=== PATIENT | male | born 2000 | race Hispanic/Latino ===

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

== ENCOUNTER 2022-01-10 19:31 | Emergency (ER) | payer SELFPAY ==
[~2022-01-10] VITALS: Ht 177.8 cm; Wt 86.2 kg
[2022-01-10] MEDS ORDERED: IBUPROFEN 600 MG TAB PO STA (21:00)
[2022-01-10] MEDS ORDERED: IBUPROFEN 600 MG TAB ONE (21:11)
[2022-01-10] MEDS ORDERED: ONDANSETRON ODT4 MG PO ×2 (23:24→23:34)
[2022-01-10] MEDS ORDERED: AZITHROMYCIN250 MG PO (23:35)
[2022-01-10] MEDS ORDERED: VENTOLIN HFA18 GM INH (23:35)
== END 2022-01-10 23:49 | disposition home or self-care (01) ==
LOC: FSED 20:20
DX: J09.X2 Influenza due to identified novel influenza A virus with other respiratory manifestations (principal); J98.01 Acute bronchospasm; B34.9 Viral infection, unspecified; R50.9 Fever, unspecified; R05.9 Cough, unspecified
CPT/HCPCS: 83518; 87400; 99283

== ENCOUNTER 2022-05-28 03:14 | Emergency (ER) | payer OTHER ==
[~2022-05-28] VITALS: Ht 180.3 cm; Wt 80.3 kg
[~2022-05-28 03:14] MED LIST: AZITHROMYCIN250 MG PO; ONDANSETRON ODT4 MG PO; VENTOLIN HFA18 GM INH
[2022-05-28] MEDS ORDERED: FAMOTIDINE 20 MG/2 ML VIAL IV STA (03:43)
[2022-05-28] MEDS ORDERED: DIPHENHYDRAMINE HCL INJ 50 MG/ML VIAL IV ONE (03:45)
[2022-05-28] MEDS ORDERED: METHYLPREDNISOLONE SOD SUCC 125 MG/2ML VIAL IV ONE (03:45)
[2022-05-28] MEDS ORDERED: SODIUM CHLORIDE 0.9% 1000ML 1,000 ML IV SCH (04:00)
[2022-05-28] MEDS ORDERED: DIPHENHYDRAMINE HCL INJ 50 MG/ML VIAL ONE (04:01)
[2022-05-28] MEDS ORDERED: SODIUM CHLORIDE 0.9% 1000ML 1,000 ML ONE (04:02)
[2022-05-28] MEDS ORDERED: METHYLPREDNISOLONE SOD SUCC 125 MG/2ML VIAL ONE (04:02)
[2022-05-28] MEDS ORDERED: FAMOTIDINE 20 MG/2 ML VIAL IV ONE (04:02)
[2022-05-28] MEDS ORDERED: PREDNISONE20 MG PO (04:32)
[2022-05-28] MEDS ORDERED: PROVENTIL HFA6.7 GM INH (04:34)
[2022-05-28] MEDS ORDERED: EPINEPHRIN0.3 MG/0.3 IM (04:36)
[2022-05-28] MEDS ORDERED: FAMOTIDINE40 MG PO (04:37)
[2022-05-28 04:45] VITALS: BP 138/75
== END 2022-05-28 04:45 | disposition home or self-care (01) ==
LOC: FSED 03:30
DX: L50.9 Urticaria, unspecified (principal); T78.40XA Allergy, unspecified, initial encounter; L29.9 Pruritus, unspecified; J45.909 Unspecified asthma, uncomplicated; F17.210 Nicotine dependence, cigarettes, uncomplicated
CPT/HCPCS: 96374; 96375; 96376; 99283; J1200; J2930; J7030

== ENCOUNTER 2022-06-23 00:25 | Emergency (ER) | payer OTHER ==
[~2022-06-23] VITALS: Ht 180.3 cm; Wt 81.2 kg
[~2022-06-23 00:25] MED LIST changes: +EPINEPHRIN0.3 MG/0.3 IM; +FAMOTIDINE40 MG PO; +PREDNISONE20 MG PO; +PROVENTIL HFA6.7 GM INH
[2022-06-23] MEDS ORDERED: DEXAMETHASONE SOD PHOS 10 MG/1 ML VIAL IM ONE (00:45)
[2022-06-23] MEDS ORDERED: DIPHENHYDRAMINE HCL 25 MG CAP PO ONE (00:45)
[2022-06-23] MEDS ORDERED: PREDNISONE50 MG PO (00:46)
[2022-06-23] MEDS ORDERED: PROVENTIL HFA6.7 GM INH (00:46)
[2022-06-23] MEDS ORDERED: DIPHENHYDRAMINE50 M1 PO (00:46)
[2022-06-23] MEDS ORDERED: DEXAMETHASONE SOD PHOS INJ 4 MG/ML SDV ONE (00:52)
[2022-06-23 01:10] VITALS: BP 136/74
== END 2022-06-23 01:10 | disposition home or self-care (01) ==
LOC: FSED 00:29
DX: L50.9 Urticaria, unspecified (principal); T78.40XA Allergy, unspecified, initial encounter; J45.909 Unspecified asthma, uncomplicated
CPT/HCPCS: 96372; 99282; J1100 ×2

== ENCOUNTER 2023-01-04 22:05 | Emergency (ER) | payer OTHER ==
[~2023-01-04] VITALS: Ht 180.3 cm; Wt 75.7 kg
[~2023-01-04 22:05] MED LIST changes: +DIPHENHYDRAMINE50 M1 PO; +PREDNISONE50 MG PO
[2023-01-04] MEDS ORDERED: ACETAMINOPHEN 325 MG TAB PO ONE (22:30)
[2023-01-04] MEDS ORDERED: AMOXICILLIN 250 MG CAP PO SCH (22:45)
[2023-01-04] MEDS ORDERED: AMOXICILLIN500 MG PO (22:49)
[2023-01-04] MEDS ORDERED: AMOXICILLIN/CLAVULANATE K 875 MG TAB ONE (23:08)
[2023-01-04] MEDS ORDERED: ACETAMINOPHEN 325 MG TAB ONE (23:11)
[2023-01-04 23:20] VITALS: BP 136/79
[2023-01-04] MEDS ORDERED: AMOXICILLIN/CLAVULANATE K 875 MG TAB PO STA (23:22)
== END 2023-01-04 23:20 | disposition home or self-care (01) ==
LOC: FSED 22:20
DX: R05.9 Cough, unspecified (principal); J02.0 Streptococcal pharyngitis; J45.909 Unspecified asthma, uncomplicated
CPT/HCPCS: 83518; 87400; 99283

== ENCOUNTER 2023-01-27 20:51 | Emergency (ER) | payer OTHER ==
[~2023-01-27] VITALS: Ht 180.3 cm; Wt 80.3 kg
[~2023-01-27 20:51] MED LIST changes: +AMOXICILLIN500 MG PO
[2023-01-27] MEDS ORDERED: MUPIROCIN 2% OINT 22 GM TUBE TOP ONE (21:15)
[2023-01-27] MEDS ORDERED: TETANUS/DIPHTHERIA TOX ADULT 0.5 ML SYR IM STA (21:18)
[2023-01-27] MEDS ORDERED: IBUPROFEN200 MG PO (21:23)
[2023-01-27] MEDS ORDERED: AUGMENTIN 500-1 EACH PO (21:23)
[2023-01-27] MEDS ORDERED: BACITRACIN ZINC 0.9GM TP ONE (21:24)
[2023-01-27] MEDS ORDERED: CEPHALEXIN MONOHYDRATE 250 MG CAP PO ONE (21:30)
[2023-01-27] MEDS ORDERED: CEPHALEXIN MONOHYDRATE 250 MG CAP ONE (21:40)
[2023-01-27] MEDS ORDERED: TETANUS/DIPHTHERIA TOX ADULT 0.5 ML SYR ONE (21:44)
[2023-01-27 22:34] VITALS: BP 118/62
== END 2023-01-27 21:41 | disposition home or self-care (01) ==
LOC: FSED 20:56
DX: S31.23XA Puncture wound without foreign body of penis, initial encounter (principal); W54.0XXA Bitten by dog, initial encounter; Y92.89 Other specified places as the place of occurrence of the external cause; J45.909 Unspecified asthma, uncomplicated
CPT/HCPCS: 90714; 99284

== ENCOUNTER 2023-04-27 14:01 | Emergency (ER) | payer OTHER ==
[~2023-04-27] VITALS: Ht 177.8 cm; Wt 84.6 kg
[~2023-04-27 14:01] MED LIST changes: +AUGMENTIN 500-1 EACH PO; +IBUPROFEN200 MG PO
[2023-04-27] MEDS ORDERED: ONDANSETRON HCL 4 MG ORAL DISINTEGRATING TAB ONE (14:28)
[2023-04-27] MEDS ORDERED: ONDANSETRON HCL INJ 2MG/ML 2ML 2 MG/ML VIAL IV STA (14:57)
[2023-04-27] MEDS ORDERED: ONDANSETRON HCL 4 MG ORAL DISINTEGRATING TAB PO ONE (15:00)
[2023-04-27] MEDS ORDERED: FAMOTIDINE 20 MG TAB ONE (15:01)
[2023-04-27] MEDS ORDERED: ONDANSETRON ODT4 MG PO (15:05)
[2023-04-27] MEDS ORDERED: FAMOTIDINE20 MG PO (15:06)
[2023-04-27] MEDS ORDERED: PROVENTIL HFA6.7 GM INH (15:07)
[2023-04-27] MEDS ORDERED: LEVSIN-SL0.125 MG SL (15:07)
[2023-04-27 15:08] VITALS: O2SAT 99
[2023-04-27] MEDS ORDERED: GUAIFENESIN-CO118 ML PO (15:10)
[2023-04-27] MEDS ORDERED: FAMOTIDINE 20 MG TAB PO ONE (15:15)
== END 2023-04-27 15:35 | disposition home or self-care (01) ==
LOC: FSED 14:11
DX: J10.1 Influenza due to other identified influenza virus with other respiratory manifestations (principal); R05.9 Cough, unspecified; R11.2 Nausea with vomiting, unspecified; R19.7 Diarrhea, unspecified; J45.909 Unspecified asthma, uncomplicated; F17.290 Nicotine dependence, other tobacco product, uncomplicated; Z79.899 Other long term (current) drug therapy
CPT/HCPCS: 81003; 87400; 99283; Q0162

== ENCOUNTER 2024-10-31 08:02 | Emergency (ER) | payer SELFPAY ==
[~2024-10-31] VITALS: Ht 177.8 cm; Wt 85.3 kg
[~2024-10-31 08:02] MED LIST changes: +ALL DAY ALLERGY10 MG PO; +BENADRYL25 M1 PO; +FAMOTIDINE20 MG PO; +GUAIFENESIN-CO118 ML PO; +LEVSIN-SL0.125 MG SL
[2024-10-31] MEDS: IBUPROFEN 600 MG TAB PO STA (08:29)
[2024-10-31] MEDS ORDERED: CIPROFLOX-DEXA7.5 ML OT (08:30)
[2024-10-31] MEDS ORDERED: TAMIFLU75 MG PO (08:35)
[2024-10-31 08:44] VITALS: PULSE 71; RESP 16; TEMP 98.8; O2SAT 99
== END 2024-10-31 08:44 | disposition home or self-care (01) ==
LOC: FSED 08:05
DX: R05.9 Cough, unspecified (principal); J10.1 Influenza due to other identified influenza virus with other respiratory manifestations; J02.0 Streptococcal pharyngitis; H60.91 Unspecified otitis externa, right ear; J45.909 Unspecified asthma, uncomplicated; Z11.52 Encounter for screening for COVID-19
CPT/HCPCS: 0223U; 83518; 87400; 99283